=== PATIENT | male | born 1985 | race Caucasian/White ===

== ENCOUNTER 2024-11-11 05:47 | Inpatient (IN) | payer BC ==
[2024-11-11] MEDS ORDERED: Lidocaine 1% w/Epinephrine 1:200K 30 ML VIAL ONE (06:21)
[2024-11-11] MEDS ORDERED: Lidocaine 4% Topical Sol 50 ML BOT ONE (06:32)
[2024-11-11] MEDS ORDERED: Sevoflurane 250 ML INH ANEST BOTTLE ONE (06:32)
[2024-11-11] MEDS ORDERED: PROPOFOL 40 ML ONE (06:34)
[2024-11-11] MEDS ORDERED: Ondansetron PF 4 MG/2 ML Vial ONE (06:34)
[2024-11-11] MEDS ORDERED: Rocuronium Bromide 10 MG/ML (10ML VIAL) ONE (06:34)
[2024-11-11] MEDS ORDERED: SUGAMMADEX SODIUM 200 MG/2 ML VIAL ONE (06:34)
[2024-11-11] MEDS ORDERED: Lidocaine 1% PF 5 ML VIAL ONE (06:35)
[2024-11-11] MEDS ORDERED: CEFAZOLIN 2 GM VIAL ONE (06:52)
[2024-11-11] MEDS ORDERED: Acetaminophen 325 MG TAB PO PRN (06:56)
[2024-11-11] MEDS ORDERED: Acetaminophen/Codeine 30-300mg Tablet PO PRN (06:56)
[2024-11-11] MEDS ORDERED: Ondansetron PF 4 MG/2 ML Vial IVP PRN (06:56)
[2024-11-11] MEDS ORDERED: Bupivacaine HCl 0.5%/Epinephrine 1:200,000/PF 30 ml Vial ONE (06:58)
[2024-11-11 10:20] VITALS: BMI 39.4
[2024-11-11] MEDS: Acetaminophen W/ Codeine 5 ML UDCUP PO PRN (11:27)
[2024-11-11] MEDS: Calcitriol 0.25 MCG CAP PO SCH (11:58)
[2024-11-11] MEDS: Calcium Carbonate 500 MG ChewTAB PO SCH (11:58)
[2024-11-11 14:36] VITALS: BP 156/100
[2024-11-12 03:46] LABS: Calcium 9.0 mg/dL (7.8-10.44)
[2024-11-12 08:14] VITALS: TEMP 98.1
[2024-11-12] MEDS: Calcitriol 0.25 MCG CAP PO SCH (08:17)
== END 2024-11-12 08:40 | disposition home or self-care (01) | DRG 627 ==
LOC: CSHSDC 05:47 → CSHICU 09:33
PROVIDERS: ADMIT Otolaryngology Plastic Surgery within the Head & Neck; ATTEND Otolaryngology Plastic Surgery within the Head & Neck
PROC: 0GTH0ZZ Resection of Right Thyroid Gland Lobe, Open Approach (ICD-10-PCS; principal; 2024-11-11)
PROC: 3E033XZ Introduction of Vasopressor into Peripheral Vein, Percutaneous Approach (ICD-10-PCS; 2024-11-11)
DX: E04.2 Nontoxic multinodular goiter (principal); R13.10 Dysphagia, unspecified
CPT/HCPCS: 82310; 83970; 88305; 88307; 88331; 94002; 94760; 94762; J1100; J2250; J2405; J2704; J3010